=== PATIENT | female | born 1990 | race Two or more races ===

== ENCOUNTER 2019-09-11 12:06 | Emergency (ER) | payer BC, OTHER ==
[2019-09-11] MEDS ORDERED: METOCLOPRAMIDE HCL 10 MG TABLET PO ONE (12:25)
--- NOTE | 2019-09-11 12:27 | ER Document Report ---
ED Medical Screen (RME) - General Chief Complaint: Abdominal Pain Stated Complaint: ABDOMINAL Time Seen by Provider: 09/11/19 12:24 Primary Care Provider: JORGE RAMIREZ MD [Primary Care Provider] - Follow up as needed - [facility] Notes: 09/11/19 12:25 Patient is a 28-year-old female no significant past medical history presents complaining of mid abdominal pain and feeling bloated/distended that began around 10 AM today. Patient does have associated nausea as well. She is urinating normally and did have a normal bowel movement this morning. Patient states that after the bowel movement her symptoms began. No melena or hematochezia. Denies drug allergies. Only surgical history to her abdomen were removal of uterine polyps. No fever. I have treated and performed a rapid initial assessment of this patient. A comprehensive ED assessment and evaluation of the patient, analysis of test results and completion of medical decision making process will be conducted by additional ED providers. PHYSICAL EXAMINATION: GENERAL: Well-appearing, well-nourished and in no acute distress. A&Ox4. Answers questions appropriately. Abdomen: Limited exam in triage, but grossly nontender. - Related Data Allergies/Adverse Reactions: No Known Allergies Allergy (Unverified 09/11/19 12:25) Physical Exam - Vital signs Vitals: Temp Pulse Resp BP Pulse Ox 98.3 F 104 H 18 149/85 H 96 09/11/19 12:10 09/11/19 12:10 09/11/19 12:10 09/11/19 12:10 09/11/19 12:10 Course - Vital Signs Vital signs: Temp Pulse Resp BP Pulse Ox 98.3 F 104 H 18 149/85 H 96 09/11/19 12:10 09/11/19 12:10 09/11/19 12:10 09/11/19 12:10 09/11/19 12:10 Doctor's Discharge - Discharge Referrals: JORGE RAMIREZ MD [Primary Care Provider] - Follow up as needed
--- NOTE | 2019-09-11 12:57 | ER Document Report ---
ED GI/ - General Chief Complaint: Abdominal Pain Stated Complaint: ABDOMINAL Time Seen by Provider: 09/11/19 12:24 Primary Care Provider: JORGE RAMIREZ MD [ACTIVE STAFF] - Follow up as needed Notes: CHIEF COMPLAINT: Abdominal bloating and discomfort for 1 year HPI: 28-year-old female presenting to the emergency department complaining of continued intermittent bloating and discomfort in the abdomen for 1 year. Ep isodes are intermittent in nature usually occur after a bowel movement and can last for several hours to a day. Denies nausea or vomiting. Denies constipation. Denies dysuria. Denies fever. Patient states occasionally she will have some epigastric bloating or discomfort after eating. She has an appointment with Dr. Mann next week but states the bloating and discomfort were worse again yesterday and today so she decided to come to the emergency department. No specific history of intra-abdominal surgeries. No family history of cholelithiasis. States mother had colon cancer ROS: See HPI - all other systems were reviewed and are otherwise negative Constitutional: no fever Eyes: no drainage, no blurred vision ENT: no runny nose, no sore throat Cardiovascular: no chest pain Resp: no SOB, no cough GI: no vomiting, no diarrhea, + abdominal pain and bloating : no dysuria Integumentary: no rash Allergy: no hives Musculoskeletal: no extremity pain or swelling Neurological: no numbness/tingling, no weakness MEDICATIONS: I agree with the patient medications as charted by the RN. ALLERGIES: I agree with the allergies as charted by the RN. PAST MEDICAL HISTORY/PAST SURGICAL HISTORY: Reviewed and agree as charted by RN. SOCIAL HISTORY: Reviewed and agree as charted by RN. FAMILY HISTORY: No significant familial comorbid conditions directly related to patient complaint EXAM: Reviewed vital signs as charted by RN. CONSTITUTIONAL: Alert and oriented and responds appropriately to questions. Well-appearing; well-nourished, no acute distress HEAD: Normocephalic; atraumatic EYES: PERRL; Conjunctivae clear, sclerae non-icteric ENT: normal nose; no rhinorrhea; moist mucous membranes; pharynx without lesions noted, no uvula edema or deviation, no tonsillar hypertrophy, phonation normal NECK: Supple without meningismus; non-tender; no cervical lymphadenopathy, no masses CARD: RRR; no murmurs, no clicks, no rubs, no gallops; symmetric distal pulses RESP: Normal chest excursion without splinting or tachypnea; breath sounds clear and equal bilaterally; no wheezes, no rhonchi, no rales, pulse oximetry 96% on room air not hypoxic ABD/GI: Obese, normal bowel sounds; non-distended; soft, unable to reproduce any tenderness on palpation of the abdomen, no rebound, no guarding; no palpable organomegaly or masses. BACK: The back appears normal and is non-tender to palpation, there is no CVA tenderness EXT: Normal ROM in all joints; non-tender to palpation; no cyanosis, no effusions, no edema SKIN: Normal color for age and race; warm; dry; good turgor; no acute lesions noted NEURO: Moves all extremities equally; Motor and sensory function intact PSYCH: The patient's mood and manner are appropriate. Grooming and personal hygiene are appropriate. MDM: 28-year-old female presenting with abdominal bloating intermittent over a years time, has appointment with GI next week but did not want to wait for evaluation as she had worsening symptoms yesterday after a bowel movement. She has no reproducible pain on exam, is afebrile. Initial screening labs placed in triage. Will add gallbladder ultrasound to evaluate for cholelithiasis. Differential would also include gastritis, gastric ulcer. Patient has had no vomiting low suspicion for obstruction TRAVEL OUTSIDE OF THE [place] IN LAST 30 DAYS: No - Related Data Allergies/Adverse Reactions: No Known Allergies Allergy (Unverified 09/11/19 12:25) Home Medications: fluoxetine Past Medical History - Social History Smoking Status: Never Smoker Chew tobacco use (# tins/day): No Frequency of alcohol use: None Drug Abuse: None Family History: Reviewed & Not Pertinent Patient has suicidal ideation: No Patient has homicidal ideation: No Physical Exam - Vital signs Vitals: Temp Pulse Resp BP Pulse Ox 98.3 F 104 H 18 149/85 H 96 09/11/19 12:10 09/11/19 12:10 09/11/19 12:10 09/11/19 12:10 09/11/19 12:10 Course - Re-evaluation Re-evalutation: 09/11/19 14:59 I discussed evaluation results at length with the patient. X-ray suggests cons tipation, gallbladder ultrasound does not show acute abnormalities. Patient does have a nonobstructing kidney stone in the right kidney. Patient's lab work is nonactionable. We discussed medications and follow-up. I will place patient on magnesium citrate to help with the constipation, Protonix for reflux symptoms. She will call her javascript front end developer Dr. Mann tomorrow to inform them of her visit to the emergency department and her testing studies. She has an appointment in 1 week with gastroenterology - Vital Signs Vital signs: Temp Pulse Resp BP Pulse Ox 98.3 F 104 H 18 149/85 H 96 09/11/19 12:10 09/11/19 12:10 09/11/19 12:10 09/11/19 12:10 09/11/19 12:10 - Laboratory Result Diagrams: 09/11/19 12:35 09/11/19 12:35 Laboratory results interpreted by me: 09/11/19 12:35 RDW 16.2 H Discharge - Discharge Clinical Impression: Abdominal pain, chronic, epigastric, Constipation, Reflux gastritis, Kidney stone on right side Condition: Stable Disposition: HOME, SELF-CARE Instructions: Abdominal Pain ([facility]) Additional Instructions: Take the medications as prescribed. Low-fat low spice diet. Call the gastroenterology office tomorrow to inform them of your visit to the emergency department. Your lab work, ultrasound did not show acute actionable findings today. It was noted on your ultrasound that you have a small kidney stone in the right kidney. Return for onset of fever or focal abdominal pain. Prescriptions: Sennosides/Docusate Sodium [Docusate Sodium-Senna Tablet] 1 each PO DAILY #7 tablet Pantoprazole Sodium [Protonix [address] Tablet] 20 mg PO DAILY #30 tablet. Referrals: JORGE RAMIREZ MD [ACTIVE STAFF] - Follow up as needed KY MANN MD [ACTIVE STAFF] - Follow up as needed
[2019-09-11 13:07] LABS: ABSOLUTE BASOPHILS # (AUTO) 0.1 10^3/uL (0.0-0.2); ABSOLUTE EOSINOPHILS # (AUTO) 0.1 10^3/uL (0.0-0.6); ABSOLUTE MONOCYTES (AUTO) 0.6 10^3/uL (0.1-1.4); ABSOLUTE NEUT (AUTO) 5.7 10^3/uL (1.7-8.2); BASOPHILS % (AUTO) 0.9 % (0-2); EOSINOPHILS % (AUTO) 1.1 % (0-6); HEMATOCRIT 39.9 % (36.0-47.0); HEMOGLOBIN 13.6 g/dL (12.0-15.5); LYMPHOCYTES % (AUTO) 23.5 % (13-45); MEAN CORPUSCULAR HEMOGLOBIN 28.3 pg (27.0-33.4); MEAN CORPUSCULAR VOLUME 83 fl (80-97); PLATELET COUNT 368 10^3/uL (150-450); RED CELL DISTRIBUTION WIDTH 16.2 % (11.5-14.0); SEGMENTED NEUTROPHILS % (AUTO) 67.5 % (42-78); TOTAL CELLS COUNTED % (AUTO) 100 %; WHITE BLOOD COUNT 8.5 10^3/uL (4.0-10.5)
[2019-09-11 13:13] LABS: APPEARANCE,URINE CLOUDY; BILIRUBIN,URINE NEGATIVE (NEGATIVE); COLOR,URINE YELLOW; GLUCOSE, URINE NEGATIVE (NEGATIVE); KETONES,URINE NEGATIVE (NEGATIVE); PROTEIN,URINE NEGATIVE (NEGATIVE); URINE SPECIFIC GRAVITY 1.019; UROBILINOGEN,URINE NEGATIVE mg/dL (<2.0)
[2019-09-11 13:22] LABS: ALBUMIN 4.3 g/dL (3.5-5.0); ALKALINE PHOSPHATASE 80 U/L (38-126); ANION GAP 10 (5-19); ASPARTATE AMINO TRANSFERASE 25 U/L (14-36); BILIRUBIN,DIRECT 0.3 mg/dL (0.0-0.4); BILIRUBIN,TOTAL 0.3 mg/dL (0.2-1.3); BLOOD UREA NITROGEN 13 mg/dL (7-20); CARBON DIOXIDE 25 mmol/L (22-30); CHLORIDE 105 mmol/L (98-107); GLUCOSE 92 mg/dL (75-110); POTASSIUM 4.1 mmol/L (3.6-5.0); TOTAL PROTEIN 7.5 g/dL (6.3-8.2)
--- NOTE | 2019-09-11 13:38 | RADIOLOGY REPORT (SQ) ---
EXAM DESCRIPTION: KUB/ABDOMEN (SINGLE VIEW) COMPLETED DATE/TIME: 09/11/2019 1:26 pm REASON FOR STUDY: abd pain, feels bloated COMPARISON: None. NUMBER OF VIEWS: One view. TECHNIQUE: Supine radiographic image of the abdomen acquired. LIMITATIONS: None. FINDINGS: BOWEL GAS PATTERN: Gas pattern is nonobstructive. There is large amount of stool througho ut the colon. CALCIFICATIONS: Possible calcification in the right upper quadrant could represent renal stone or fec al material. SOFT TISSUES: No gross mass or suggestion of organomegaly. HARDWARE: None in the abdomen. BONES: No acute fracture. No worrisome bone lesions. OTHER: No other significant finding. IMPRESSION: Moderate constipation. No obstruction. TECHNICAL DOCUMENTATION: JOB ID: [id number] [employer]- All Rights Reserved Reading location - IP/workstation name: [email or web address]
--- NOTE | 2019-09-11 14:33 | RADIOLOGY REPORT (SQ) ---
EXAM DESCRIPTION: U/S ABDOMEN LIMITED W/O DOP COMPLETED DATE/TIME: 09/11/2019 2:02 pm REASON FOR STUDY: bloating abd pain COMPARISON: None. TECHNIQUE: Dynamic and static grayscale images acquired of the abdomen and recorded on PACS. Additio nal selected color Doppler and spectral images recorded. LIMITATIONS: None. FINDINGS: PANCREAS: Visualized portions the pancreas are unremarkable. The tail is obscured by over lying bowel gas. LIVER: The liver is echogenic consistent with fatty infiltration. Normal size. No focal lesions. LIVER VASCULATURE: Normal directional flow of the main portal vein and hepatic veins. GALLBLADDER: No stones. Normal wall thickness. No pericholecystic fluid. ULTRASOUND-DETECTED ABBASI'S SIGN: Negative. INTRAHEPATIC DUCTS AND COMMON DUCT: CBD and intrahepatic ducts normal caliber. No filling defects. INFERIOR VENA CAVA: Obscured by overlying bowel gas. AORTA: Normal in caliber throughout. RIGHT KIDNEY: Normal size. No hydronephrosis. Normal echogenicity. Small echogenic foci consisten t with nonobstructing renal stones. PERITONEAL AND RIGHT PLEURAL SPACE: No ascites or effusions. OTHER: No other significant findings. IMPRESSION: Small nonobstructing right renal calculi. Fatty infiltrated liver. TECHNICAL DOCUMENTATION: JOB ID: [id number] [employer]- All Rights Reserved Reading location - IP/workstation name: [email or web address]
[2019-09-11 15:11] VITALS: BP 110/73
== END 2019-09-11 15:11 | disposition home or self-care (01) ==
LOC: ER 12:06
DX: K29.60 Other gastritis without bleeding (principal); K21.9 Gastro-esophageal reflux disease without esophagitis; K59.00 Constipation, unspecified; N20.0 Calculus of kidney; R10.13 Epigastric pain; G89.29 Other chronic pain; Z79.899 Other long term (current) drug therapy
CPT/HCPCS: 36415; 74018; 76705; 80053; 81001; 81025; 83690; 85025; 99284

== ENCOUNTER 2019-09-25 09:10 | Day surgery (SDC) | payer BC ==
[2019-09-25] MEDS ORDERED: PROPOFOL INJ 200 MG/20 ML VIAL IV ONE (12:47)
[2019-09-25] MEDS ORDERED: PROMETHAZINE HCL INJ 25 MG/1 ML VIAL IV PRN (12:58)
[2019-09-25] MEDS ORDERED: DIPHENHYDRAMINE HCL 50 MG/ML VIAL IV PRN (12:58)
[2019-09-25 14:56] VITALS: BP 109/75
--- NOTE | 2019-09-25 19:44 | Operative Report ---
Operative Report DATE OF SURGERY: 09/25/19 Operative Report: The risks benefits and alternatives are discussed with the patient procedure is done in the OR with Propofol sedation EGD completed with retroflexion done colonoscopy is completed to the cecum with a good prep PREOPERATIVE DIAGNOSIS: change in bowel habits. epigastric discomfort, gerd POSTOPERATIVE DIAGNOSIS: mild righrt colon inflammation s/ biopsy. gastritis biopsy to rule out H.Pylori OPERATION: colonoscopy with biopsy. EGD with biopsy SURGEON: KY MANN ANESTHESIA: LMAC TISSUE REMOVED OR ALTERED: as noted above COMPLICATIONS: none ESTIMATED BLOOD LOSS: none INTRAOPERATIVE FINDINGS: as noted above PROCEDURE: patient tolerated the procedure well no post procedure complications are noted patient is discharged in good condition discharge date 09/25/19 discharge diet and activity is normal follow up on biopsy patient is instructed to call the office or to go the ED if having any problems post procedure
== END 2019-09-25 14:20 | disposition home or self-care (01) ==
LOC: OROUT 09:10
PROVIDERS: ATTEND Internal Medicine Gastroenterology
DX: K29.50 Unspecified chronic gastritis without bleeding (principal); K52.9 Noninfective gastroenteritis and colitis, unspecified; K21.9 Gastro-esophageal reflux disease without esophagitis
CPT/HCPCS: 43239; 45380; 81025; 88305 ×2; 00813; J2704; 813